=== PATIENT | male | born 1960 | race Caucasian/White ===

== ENCOUNTER 2018-08-24 18:12 | Emergency (ER) | payer BC, OTHER ==
[~2018-08-24] VITALS: Ht 177.8 cm; Wt 98.2 kg
[~2018-08-24 18:12] MED LIST: CYCL10TA7 PO; DIAZ10TA4 PO; IBUP800T48 PO; OXYC-284 PO
[2018-08-24 18:21] VITALS: Ht 177.8 cm; Wt 98.2 kg
[2018-08-24] MEDS ORDERED: ACETAMINOPHEN 500 MG TAB PO STA (19:09)
[2018-08-24] MEDS ORDERED: LIDOCAINE 1% (MPF) 5 ML VIAL INFIL ONE (19:30)
[2018-08-24] MEDS ORDERED: IBUPROFEN 800 MG TAB PO ONE (19:30)
[2018-08-24] MEDS ORDERED: CEFTRIAXONE 1 GM INJ IM ONE (19:30)
[2018-08-24] MEDS ORDERED: ACET500C5 PO (19:46)
[2018-08-24] MEDS ORDERED: SULF1TAB31 PO (19:46)
[2018-08-24] MEDS ORDERED: CEPH-443 PO (19:46)
[2018-08-24] MEDS ORDERED: TRIMETHOPRIM/SULFAMETHOX (DS) TAB PO ONE (20:00)
[2018-08-24 20:57] VITALS: BP 180/108; PULSE 97; RESP 18
--- NOTE | 2018-08-24 21:25 | ERD ---
ER Documentation Chief Complaint Chief Complaint abscess @ right upper arm HPI History of Present Illness: Patient coming in today with complaint of abscess to right upper forearm that has been present for 4 days. Patient reports he feels that abscess is getting better due to redness and induration decreasing. Love carrillo reports he is only coming to ER because his insisted that he come in. Patient reports he wants to go to work tonight. Patient denies associated symptoms including chills, fatigue. Patient unsure if he has been bitten by an insect, but reports mild itching 4 nights ago and then noticing redness and swelling the next day. At home pharmacological/nonpharmacological treatment for symptoms: Patient reports washing abscess at nighttime with alcohol and putting Neosporin on it. "It keeps she is scabbing over" Denies social concerns; Denies recent foreign travel ROS All systems reviewed and are negative except as per history of present illness. Medications Home Meds Active Scripts Acetaminophen* (Tylophen*) 500 Mg Capsule, 2 CAP PO Q6 PRN for PAIN AND OR ELEVATED TEMP, #20 CAP Prov:KARL KINSEY NP 08/24/18 Sulfamethoxazole/Trimethoprim* (Bactrim Ds* Tablet) 1 Each Tablet, 1 TAB PO BID for abscess infection for 7 Days, TAB Prov:KARL KINSEY NP 08/24/18 Cephalexin* (Keflex*) 500 Mg Capsule, 500 MG PO QID for 7 Days, CAP Prov:KARL KINSEY V TAX MANAGER PUBLIC 08/24/18 Ibuprofen* (Motrin*) 800 Mg Tab, 800 MG PO TID, #30 TAB Prov:MARY ARREOLA MD 01/13/15 Oxycodone Hcl-Acetaminophen* (Percocet*) 10-325 Mg Tablet, 1 TAB PO Q4H PRN for PAIN, #20 TAB Prov:MARY ARREOLA MD 01/13/15 Diazepam* (Diazepam*) 10 Mg Tablet, 10 MG PO Q8, #20 TAB Prov:MARY ARREOLA MD 01/13/15 Reported Medications Ibuprofen* (Motrin*) 800 Mg Tab, 800 MG PO TID PRN for PAIN LEVEL 1-5, TAB 01/13/15 Cyclobenzaprine Hcl* (Cyclobenzaprine Hcl*) 10 Mg Tablet, 10 MG PO TID PRN for M USCLE SPASMS, TAB 01/13/15 Allergies Allergies: Coded Allergies: No Known Drug Allergies (Verified Allergy, Unknown, 08/24/18) PMhx/Soc Medical and Surgical Hx: pt denies Medical Hx, pt denies Surgical Hx Hx Miscellaneous Medical Probl: Yes (SCIATICA ) Hx Alcohol Use: Yes Hx Substance Use: No Hx Tobacco Use: No Smoking Status: Never smoker FmHx Family History: diabetes; No coronary disease Physical Exam Vitals Vital Signs Date Temp Pulse Resp B/P (MAP) Pulse Ox O2 O2 Flow FiO2 Time Delivery Rate 08/24/18 99.4 97 18 180/108 97 Room Air 20:57 (132) 08/24/18 100.1 114 24 156/101 96 18:21 (119) Physical Exam Const: No acute distress Head: Atraumatic Eyes: Normal Conjunctiva ENT: Normal External Ears, Nose and Mouth. Neck: Full range of motion. No meningismus. Resp: Clear to auscultation bilaterally Cardio: Regular rate and rhythm, no murmurs Abd: Soft, non tender, non distended. Normal bowel sounds Skin: No petechiae. Abscess noted to right upper arm, positive induration, no fluctuance, mild area of purulent drainage noted, no streaking, no lymphadenopathy Back: No midline or flank tenderness Ext: No cyanosis, or edema Neur: Awake and alert Psych: Normal Mood and Affect Results 24 hrs Current Medications Medications Dose Sig/Edwin Start Time Status Last (Trade) Ordered Route PRN Stop Time Admin Dose Reason Admin 1,000 mg ONCE STAT 08/24/18 DC 08/24/18 Acetaminophen PO 19:09 19:45 (Tylenol 08/24/18 19:12 Tab) Ibuprofen 800 mg ONCE ONCE 08/24/18 DC 08/24/18 (Motrin) PO 19:30 19:45 08/24/18 19:31 Ceftriaxone 1 gm ONCE ONCE 08/24/18 DC 08/24/18 Sodium IM 19:30 19:45 (Rocephin) 08/24/18 19:31 Lidocaine 2.1 ml ONCE ONCE 08/24/18 DC 08/24/18 (Xylocaine INFIL 19:30 20:02 1% (Mpf)) 08/24/18 19:31 1 tab ONCE ONCE 08/24/18 DC 08/24/18 Trimethoprim/ PO 20:00 20:02 4/10/19 20:01 Sulfamethoxaz ole (Bactrim (Ds)) Procedures/MDM ED course includes a thorough examination and history. Medications: Acetaminophen and ibuprofen for fever; patient only reporting very mild pain; Rocephin antibiotic for infection due to abscess appearing to be causing systemic signs of infection. Imaging: None Labs: None Low suspicion for life-threatening medical emergency. Low suspicion for infectious emergency that requires hospitalization lash immediate intervention. No fluctuance noted to abscess, no incision and drainage indicated. Otherwise healthy patient presenting with constellation of symptoms likely representing skin abscess as characterized by history, physical exam findings. No cultures done, we will empirically treat for MRSA. ED course: Consultation with ED MD Dr. Christiana Dr. to the bedside to reevaluate patient, agrees with plan of care, no fluctuance noting an abscess is mildly draining. Small area of fibrin noted. No necrosis noted. Will add Bactrim before discharge. No respiratory distress, otherwise relatively well appearing and nontoxic. Pat ient educated on diagnoses, prescriptions, follow-up care, return precautions. Strict return precautions given for worsening condition; questions answered discharge. Disposition for discharge with followup in 2 days with PCP/clinic for reevaluation Departure Diagnosis: Primary Impression: Abscess of right upper extremity Condition: Stable Patient Instructions: Abscess, Antiobiotic Treatment Only Referrals: [facility] YOU HAVE RECEIVED A MEDICAL SCREENING EXAM AND THE RESULTS INDICATE THAT YOU DO NOT HAVE A CONDITION THAT REQUIRES URGENT TREATMENT IN THE EMERGENCY DEPARTMENT. FURTHER EVALUATION AND TREATMENT OF YOUR CONDITION CAN WAIT UNTIL YOU ARE SEEN IN YOUR DOCTORS OFFICE WITHIN THE NEXT 1-2 DAYS. IT IS YOUR RESPONSIBILITY TO MAKE AN APPOINTMENT FOR FOLOW-UP CARE. IF YOU HAVE A PRIMARY DOCTOR --you should call your primary doctor and schedule an appointment IF YOU DO NOT HAVE A PRIMARY DOCTOR YOU CAN CALL OUR PHYSICIAN REFERRAL HOTLINE AT IF YOU CAN NOT AFFORD TO SEE A PHYSICIAN YOU CAN CHOSE FROM THE FOLLOWING [facility] [address] [facility] [address] [facility] [address] [facility] [address] [facility] [facility] [address] [facility]. [facility] [address] [facility]. [facility] YOU HAVE RECEIVED A MEDICAL SCREENING EXAM AND THE RESULTS INDICATE THAT YOU DO NOT HAVE A CONDITION THAT REQUIRES URGENT TREATMENT IN THE EMERGENCY DEPARTMENT. FURTHER EVALUATION AND TREATMENT OF YOUR CONDITION CAN WAIT UNTIL YOU ARE SEEN IN YOUR DOCTORS OFFICE WITHIN THE NEXT 1-2 DAYS. IT IS YOUR RESPONSIBILITY TO MAKE AN APPOINTMENT FOR FOLOW-UP CARE. IF YOU HAVE A PRIMARY DOCTOR --you should call your primary doctor and schedule and appointment IF YOU DO NOT HAVE A PRIMARY DOCTOR YOU CAN CALL OUR PHYSICIAN REFERRAL HOTLINE AT . IF YOU CAN NOT AFFORD TO SEE A PHYSICIAN YOU CAN CHOSE FROM THE FOLLOWING [facility] INSTITUTIONS: [facility] [address] [place] [address] [facility] [address] [place] [address] [facility] [address] [place] [address] Additional Instructions: Thank you very much for allowing us to participate in your care. Your health and safety is our top priority at [facility]. It is important to read all discharge instructions and education provided in your discharge packet. Call your primary care doctor TOMORROW for an appointment during the next 2 days for a wound check/reassessment of abscess; bring all the information and medications prescribed. Have prescriptions filled and follow precisely the directions on the label. Cephalexin is an antibiotic; you must take this medication every 6 hours for 7 days. Bactrim is an antibiotic; this antibiotic will cover the MRSA bacteria. Acetaminophen is for feverpain. If the symptoms get worse and your provider is unavailable, return to the Emergency Department immediately. KARL KINSEY NP Aug 24, 2018 21:25
== END 2018-08-24 21:02 | disposition home or self-care (01) ==
LOC: FTE 18:12
DX: L02.413 Cutaneous abscess of right upper limb (principal)
CPT/HCPCS: 96372; 99284; J0696; Z7610

== ENCOUNTER 2018-08-26 11:32 | Emergency (ER) | payer BC ==
[~2018-08-26] VITALS: Ht 177.8 cm; Wt 104.0 kg
[~2018-08-26 11:32] MED LIST changes: +ACET500C5 PO; +CEPH-443 PO; +SULF1TAB31 PO
[2018-08-26 11:34] VITALS: BP 171/93; PULSE 85; RESP 18; Ht 177.8 cm; Wt 104.0 kg
[2018-08-26] MEDS ORDERED: SULF1TAB31 PO (12:43)
[2018-08-26] MEDS ORDERED: CEPH-443 PO (12:43)
--- NOTE | 2018-08-26 12:46 | ERD ---
ER Documentation Chief Complaint Chief Complaint pt bib self for wound check right upper arm HPI 58-year-old male presents for recheck of an abscess in the right upper arm. It is draining spontaneously and incision and drainage was not performed. Is taking Bactrim and Keflex. Patient states pain and redness has improved. He denies fevers, additional symptoms. ROS All systems reviewed and are negative except as per history of present illness. Medications Home Meds Active Scripts Cephalexin* (Keflex*) 500 Mg Capsule, 500 MG PO QID for 5 Days, CAP Prov:MARIELLA MATA MD 08/26/18 Sulfamethoxazole/Trimethoprim* (Bactrim Ds* Tablet) 1 Each Tablet, 1 TAB PO BID for 5 Days, #10 TAB Prov:MARIELLA MATA MD 08/26/18 Acetaminophen* (Tylophen*) 500 Mg Capsule, 2 CAP PO Q6 PRN for PAIN AND OR ELEVATED TEMP, #20 CAP Prov:KARL KINSEY V NANOSCIENCE TECHNICIAN 08/24/18 Sulfamethoxazole/Trimethoprim* (Bactrim Ds* Tablet) 1 Each Tablet, 1 TAB PO BID for abscess infection for 7 Days, TAB Prov:KARL KINSEY V NANOSCIENCE TECHNICIAN 08/24/18 Cephalexin* (Keflex*) 500 Mg Capsule, 500 MG PO QID for 7 Days, CAP Prov:KARL KINSEY V NANOSCIENCE TECHNICIAN 08/24/18 Ibuprofen* (Motrin*) 800 Mg Tab, 800 MG PO TID, #30 TAB Prov:MARY ARREOLA MD 01/13/15 Oxycodone Hcl-Acetaminophen* (Percocet*) 10-325 Mg Tablet, 1 TAB PO Q4H PRN for PAIN, #20 TAB Prov:MARY ARREOLA MD 01/13/15 Diazepam* (Diazepam*) 10 Mg Tablet, 10 MG PO Q8, #20 TAB Prov:MARY ARREOLA MD 01/13/15 Reported Medications Ibuprofen* (Motrin*) 800 Mg Tab, 800 MG PO TID PRN for PAIN LEVEL 1-5, TAB 01/13/15 Cyclobenzaprine Hcl* (Cyclobenzaprine Hcl*) 10 Mg Tablet, 10 MG PO TID PRN for MUSCLE SPASMS, TAB 01/13/15 Allergies Allergies: Coded Allergies: No Known Drug Allergies (Verified Allergy, Unknown, 08/24/18) PMhx/Soc History of Surgery: No Anesthesia Reaction: No Hx Neurological Disorder: No Hx Respiratory Disorders: No Hx Cardiac Disorders: No Hx Psychiatric Problems: No Hx Miscellaneous Medical Probl: Yes (SCIATICA ) Hx Alcohol Use: No Hx Substance Use: No Hx Tobacco Use: No Smoking Status: Never smoker FmHx Family History: No diabetes, No coronary disease, No other Physical Exam Vitals Vital Signs Date Temp Pulse Resp B/P (MAP) Pulse Ox O2 O2 Flow FiO2 Time Delivery Rate 08/26/18 98.3 85 18 171/93 98 11:34 (119) Physical Exam Const: No acute distress Head: Atraumatic Eyes: Normal Conjunctiva ENT: Normal External Ears, Nose and Mouth. Neck: Full range of motion. No meningismus. Resp: Clear to auscultation bilaterally Cardio: Regular rate and rhythm, no murmurs Abd: Soft, non tender, non distended. Normal bowel sounds Skin: No petechiae or rashes. Healing abscess decreased from area marked on right upper arm. There is active drainage and fibrin plug. No significant induration, streaking, fluctuance. Back: No midline or flank tenderness Ext: No cyanosis, or edema Neur: Awake and alert Psych: Normal Mood and Affect Procedures/MDM Patient presents for recheck on her right upper extremity abscess which is spontaneously draining and appears to be improving with oral antibiotic therapy. He will be discharged home with continuation of antibiotics, return precautions for worsening redness, fevers, new worsening symptoms. Departure Diagnosis: Primary Impression: Encounter for wound re-check Condition: Stable Patient Instructions: Wound Care Referrals: DOCTOR,NOT ON STAFF (PCP) Additional Instructions: Continue antibiotics. Recheck for worsening redness, fevers, new worsening symptoms. Wound appears to be improving. MARIELLA MATA MD Aug 26, 2018 12:46
== END 2018-08-26 13:23 | disposition home or self-care (01) ==
LOC: FTE 11:32
DX: Z48.01 Encounter for change or removal of surgical wound dressing (principal)
CPT/HCPCS: 99283